=== PATIENT | female | born 1970 | race Two or more races ===

== ENCOUNTER → 2019-09-11 | Outpatient (CLI) | payer OTHER | END | disposition home or self-care (01) | LOC: CFH 06:45 | PROVIDERS: ATTEND Internal Medicine Cardiovascular Disease | DX: I08.2 Rheumatic disorders of both aortic and tricuspid valves (principal); I10 Essential (primary) hypertension; Z79.51 Long term (current) use of inhaled steroids; Z79.899 Other long term (current) drug therapy | CPT/HCPCS: 93306 ==

== ENCOUNTER 2019-11-21 05:08 | Emergency (ER) | payer OTHER ==
[~2019-11-21] VITALS: Ht 154.9 cm; Wt 65.5 kg
[2019-11-21] MEDS ORDERED: LABETALOL 5MG/ML, 20ML IVPush STA (05:37)
[2019-11-21] MEDS ORDERED: LABETALOL 5MG/ML, 20ML ONE (05:54)
[2019-11-21] MEDS ORDERED: HYDROmorphone 1 MG/ML, 1ML INJ ONE (05:55)
[2019-11-21] MEDS ORDERED: ONDANSETRON 2MG/ML, 2ML ONE ×2 (05:55→06:07)
[2019-11-21] MEDS ORDERED: HYDROmorphone 1 MG/ML, 1ML INJ IVPush ONE (06:00)
[2019-11-21] MEDS ORDERED: MORPHINE SULFATE 4 MG/ML, 1ML IVPush ONE (06:00)
[2019-11-21] MEDS ORDERED: ONDANSETRON 2MG/ML, 2ML IVPush ONE (06:00)
[2019-11-21] MEDS ORDERED: MORPHINE SULFATE 4 MG/ML, 1ML ONE (06:07)
[2019-11-21] MEDS ORDERED: ENALAPRILAT 1.25 MG/ML, 2ML IV ONE (06:30)
[2019-11-21 06:51] LABS: RAPID INFLUENZA A Negative (Negative); RAPID INFLUENZA B Negative (Negative)
--- NOTE | 2019-11-21 06:56 | NUR ---
Bedside report received from Laurita ZURITA, patient care assumed by Bessie at this time. Pt resting in gurney, respirations even and unlabored, NAD, denies additional needs at this time.
[2019-11-21] MEDS ORDERED: LABETALOL 5MG/ML, 20ML IVPush ONE (07:00)
[2019-11-21] MEDS ORDERED: MORPHINE SULFATE 4 MG/ML, 1ML IV ONE (07:00)
--- NOTE | 2019-11-21 07:57 | NUR ---
pt resting in gurney, even and unlabored respirations, NAD, Denies additional needs at this time. Call light within reach. WCTM.
[2019-11-21 08:48] VITALS: BP 139/76
== END 2019-11-21 09:03 | disposition home or self-care (01) ==
LOC: ED 08:57
DX: I10 Essential (primary) hypertension (principal); R51 Headache
CPT/HCPCS: 70450; 87081; 87400; 87880; 93005; 96374; 96375; 99285; J2270; J2405

== ENCOUNTER 2019-12-16 12:58 | Emergency (ER) | payer OTHER ==
[~2019-12-16] VITALS: Ht 154.9 cm; Wt 65.0 kg
--- NOTE | 2019-12-16 13:31 | NUR ---
Pt arrives to ed with c/o headach. diagnosed with HTN in october. Pt reportss he has missed a few doses of her blood pressure medicines. Pt reports her headach is very severe and not tolerable. pt has elevated bp now. md to bedside for eval. Pts assesment shows no neuro deficets.
[2019-12-16] MEDS ORDERED: KETOROLAC 30 MG/1 ML ONE (13:38)
[2019-12-16] MEDS ORDERED: METOCLOPRAMIDE 5 MG/ML, 2ML ONE (13:38)
[2019-12-16] MEDS ORDERED: DIPHENHYDRAMINE 50 MG/ML, 1ML ONE (13:38)
[2019-12-16] MEDS ORDERED: DIPHENHYDRAMINE 50 MG/ML, 1ML IVPush ONE (14:00)
[2019-12-16] MEDS ORDERED: SODIUM CHLORIDE FLUSH 10ML SYR IVF ONE (14:00)
[2019-12-16] MEDS ORDERED: METOCLOPRAMIDE 5 MG/ML, 2ML IVPush ONE (14:00)
[2019-12-16] MEDS ORDERED: KETOROLAC 30 MG/1 ML IVPush ONE (14:00)
[2019-12-16] MEDS ORDERED: SODIUM CHLORIDE 0.9% 1,000ML IVBOLUS ONE (14:00)
--- NOTE | 2019-12-16 14:15 | NUR ---
Pt refused rn to start iv on right arm intially, pt refused. RN started iv on perfered site despite rn informing her was not an optimal choice. upon rn establishing access she wanted it removed so it was. She told this rn he did not know what he was doing. Pt then asked if okay to attempt on right ac , right ac access was established with no difficulty. pt was very short with RN and in lithuanian was using deragotory terms to talk about rn. S.O has been very informative and helpful with rn.
[2019-12-16 14:20] LABS: BASOPHILS # (AUTO) 0.03 x10^3/uL (0-0.1); BASOPHILS % (AUTO) 0 % (0-1); EOSINOPHILS # (AUTO) 0.03 x10^3/uL (0-0.4); EOSINOPHILS % (AUTO) 0 % (1-7); LYMPHOCYTES # (AUTO) 0.98 x10^3/uL (1-3.4); LYMPHOCYTES % (AUTO) 12 % (22-44); MD NO; MEAN CORPUSCULAR HEMOGLOBIN 29.3 pg (27.0-34.8); MEAN CORPUSCULAR HGB CONC 33.4 g/dL (32.4-35.8); MEAN CORPUSCULAR VOLUME 87.8 fL (80-100); MEAN PLATELET VOLUME 8.9 fL (7.4-10.4); MONOCYTES # (AUTO) 0.17 x10^3/uL (0.2-0.8); MONOCYTES % (AUTO) 2 % (2-9); NEUTROPHILS # (AUTO) 7.33 x10^3/uL (1.8-6.8); NEUTROPHILS % (AUTO) 86 % (42-75); PLATELET COUNT 260 x10^3/uL (130-400); RED CELL DISTRIBUTION WIDTH 13.5 % (9.6-15.2)
[2019-12-16 14:27] LABS: ALBUMIN 3.7 g/dL (3.4-5.0); ANION GAP 9 mmol/L (5-15); CALCIUM 8.6 mg/dL (8.5-10.1); CHLORIDE 107 mmol/L (98-107); CREATININE 0.78 mg/dL (0.55-1.02)
[2019-12-16 15:19] VITALS: BP 138/68
== END 2019-12-16 15:22 | disposition home or self-care (01) ==
LOC: ED 13:37
DX: R51 Headache (principal); I10 Essential (primary) hypertension; R94.31 Abnormal electrocardiogram [ECG] [EKG]
CPT/HCPCS: 36415; 80048; 82040; 85025; 93005; 96374; 96375; 99284; J1200; J1885; J2765; J7030

== ENCOUNTER 2020-05-16 21:01 | Emergency (ER) | payer OTHER ==
[~2020-05-16] VITALS: Ht 154.9 cm; Wt 68.7 kg
[2020-05-16] MEDS ORDERED: SODIUM CHLORIDE FLUSH 10ML SYR IVF ONE (22:00)
[2020-05-16] MEDS ORDERED: ONDANSETRON 2MG/ML, 2ML IVPush ONE (22:00)
[2020-05-16] MEDS ORDERED: MORPHINE SULFATE 4 MG/ML, 1ML IVPush PRN (22:00)
[2020-05-16] MEDS ORDERED: MORPHINE SULFATE 4 MG/ML, 1ML ONE (22:09)
[2020-05-16] MEDS ORDERED: ONDANSETRON 2MG/ML, 2ML ONE (22:10)
[2020-05-16 22:17] LABS: BASOPHILS # (AUTO) 0.04 x10^3/uL (0-0.1); BASOPHILS % (AUTO) 1 % (0-1); EOSINOPHILS # (AUTO) 0.09 x10^3/uL (0-0.4); EOSINOPHILS % (AUTO) 1 % (1-7); LYMPHOCYTES # (AUTO) 1.79 x10^3/uL (1-3.4); LYMPHOCYTES % (AUTO) 24 % (22-44); MD NO; MEAN CORPUSCULAR HEMOGLOBIN 29.8 pg (27.0-34.8); MEAN CORPUSCULAR HGB CONC 33.3 g/dL (32.4-35.8); MEAN CORPUSCULAR VOLUME 89.4 fL (80-100); MONOCYTES # (AUTO) 0.33 x10^3/uL (0.2-0.8); MONOCYTES % (AUTO) 5 % (2-9); NEUTROPHILS # (AUTO) 5.14 x10^3/uL (1.8-6.8); NEUTROPHILS % (AUTO) 70 % (42-75); PLATELET COUNT 247 x10^3/uL (130-400); RED CELL DISTRIBUTION WIDTH 13.6 % (9.6-15.2)
--- NOTE | 2020-05-16 22:17 | NUR ---
PIV PLACED, LABS DRAWN AND COLLECTED BY DIRECTOR OF PRODUCT DESIGN. PT PROVIDED URINE SAMPLE. UA COLLECTED AND TAKEN BY DIRECTOR OF PRODUCT DESIGN. MEDS ADMIN PER NOV. PT CONNECTED TO MONITORING. WARM BLANKET PROVIDED.
[2020-05-16 22:28] LABS: ALBUMIN 4.1 g/dL (3.4-5.0); ANION GAP 7 mmol/L (5-15); CHLORIDE 106 mmol/L (98-107)
[2020-05-16 22:32] LABS: ALANINE AMINOTRANSFERASE 22 U/L (12-78); ALKALINE PHOSPHATASE 83 U/L (45-117); BILIRUBIN,TOTAL 0.4 mg/dL (0.2-1.0); CALCIUM 9.2 mg/dL (8.5-10.1); CREATININE 0.93 mg/dL (0.55-1.02); TOTAL PROTEIN 7.9 g/dL (6.4-8.2)
[2020-05-16 22:35] LABS: MICROSCOPIC NOT IND
--- NOTE | 2020-05-16 22:56 | NUR ---
PT AT CT
--- NOTE | 2020-05-16 23:01 | NUR ---
REPORT GIVEN TO DAYRON Webber
[2020-05-16] MEDS ORDERED: OMNIPAQUE 350 MG/ML, 100ML BOTTLE ONE (23:28)
[2020-05-17 01:09] VITALS: BP 166/78
== END 2020-05-17 01:41 | disposition home or self-care (01) ==
LOC: ED 23:08
DX: K52.9 Noninfective gastroenteritis and colitis, unspecified (principal); K59.00 Constipation, unspecified; R10.32 Left lower quadrant pain; R10.31 Right lower quadrant pain; R11.0 Nausea; I10 Essential (primary) hypertension
CPT/HCPCS: 36415; 74177; 80053; 81003; 83690; 85025; 96374; 96375; 99285; J2270; J2405; Q9967

== ENCOUNTER 2020-08-10 20:15 | Inpatient (IN) | payer OTHER ==
[~2020-08-10] VITALS: Ht 154.9 cm; Wt 80.8 kg
--- NOTE | 2020-08-10 21:13 | NUR ---
PT AMBULATED BACK TO ROOM WITH .
--- NOTE | 2020-08-10 21:17 | NUR ---
ER PA WAS IN TO SEE PT.
[2020-08-10] MEDS ORDERED: SODIUM CHLORIDE FLUSH 10ML SYR IVF ONE (21:30)
[2020-08-10] MEDS ORDERED: ONDANSETRON 2MG/ML, 2ML IVPush ONE (21:30)
[2020-08-10] MEDS ORDERED: ONDANSETRON 2MG/ML, 2ML ONE (21:56)
[2020-08-10] MEDS ORDERED: MORPHINE SULFATE 4 MG/ML, 1ML ONE (21:56)
[2020-08-10] MEDS: MORPHINE SULFATE 4 MG/ML, 1ML IVPush PRN (21:58)
[2020-08-10 22:12] LABS: BASOPHILS % (AUTO) 0 % (0-1); EOSINOPHILS % (AUTO) 0 % (1-7); LYMPHOCYTES % (AUTO) 11 % (22-44); MEAN CORPUSCULAR HEMOGLOBIN 28.8 pg (27.0-34.8); MEAN CORPUSCULAR HGB CONC 32.9 g/dL (32.4-35.8); MONOCYTES % (AUTO) 6 % (2-9); NEUTROPHILS % (AUTO) 83 % (42-75); PLATELET COUNT 243 x10^3/uL (130-400); RED CELL DISTRIBUTION WIDTH 13.7 % (9.6-15.2)
--- NOTE | 2020-08-10 22:19 | NUR ---
LAB CALLED AND STATES THAT THEY NEED TO PERFORM A REDRAW DUE TO THE SAMPLE BEING HEMOLYZED.
[2020-08-10 22:21] LABS: MD NO
[2020-08-10] MEDS ORDERED: STELARA INJ (22:26)
[2020-08-10] MEDS ORDERED: LOSA25TA25 PO (22:26)
--- NOTE | 2020-08-10 22:30 | NUR ---
PT STATES SHE FEELS BETTER AFTER PAIN MEDS. RESTING IN GURNEY, NO NEEDS AT THIS TIME.
[2020-08-10 22:51] LABS: ANION GAP 6 mmol/L (5-15); CALCIUM 9.1 mg/dL (8.5-10.1); CHLORIDE 106 mmol/L (98-107)
[2020-08-10 22:54] LABS: ALANINE AMINOTRANSFERASE 23 U/L (12-78); ALKALINE PHOSPHATASE 76 U/L (45-117); BILIRUBIN,TOTAL 0.6 mg/dL (0.2-1.0); CREATININE 0.58 mg/dL (0.55-1.02); TOTAL PROTEIN 7.6 g/dL (6.4-8.2)
--- NOTE | 2020-08-10 23:00 | NUR ---
PT TO CT VIA [facility].
[2020-08-11] MEDS ORDERED: MORPHINE SULFATE 4 MG/ML, 1ML ONE (00:07)
[2020-08-11] MEDS: MORPHINE SULFATE 4 MG/ML, 1ML IVPush PRN (00:08)
--- NOTE | 2020-08-11 00:15 | NUR ---
PT MEDICATED WITH ANOTHER DOSE OF MORPHINE FOR ABD PAIN. ERP WAS IN FOR RECHECK, PLAN TO CONSULT WITH GI. PT UNDERSTANDS POC. NO OTHER NEEDS AT THIS TIME. REPORTED TO HAYDEE ZURITA.
--- NOTE | 2020-08-11 00:29 | NUR ---
REPORT FROM PARMINDER BAKER. REPORT REFLECTS THAT UA HAD BEEN COLLECTED AND SENT. THIS WAS CONFIRMED WITH LAB WHO STATES THAT THERE WAS NO ORDER RECEIVED FOR UA. ORDER PLACED.
[2020-08-11 00:40] LABS: MICROSCOPIC AUTO
[2020-08-11] MEDS ORDERED: OMNIPAQUE 350 MG/ML, 100ML BOTTLE ONE (00:50)
--- NOTE | 2020-08-11 01:06 | NUR ---
PT RESTING IN [place]. DENIES NEED FOR PAIN/NAUSEA MEDICATIONS.
[2020-08-11] MEDS ORDERED: MORPHINE SULFATE 4 MG/ML, 1ML IVPush PRN (02:30)
[2020-08-11] MEDS ORDERED: SODIUM CHLORIDE FLUSH 10ML SYR IVF PRN (02:30)
[2020-08-11] MEDS ORDERED: ONDANSETRON 2MG/ML, 2ML IVPush PRN ×2 (02:30→04:00)
--- NOTE | 2020-08-11 03:13 | NUR ---
REPORT TO MALCOLM ZURITA, PT READY FOR TRANSFER TO ROOM 447.
[2020-08-11 03:32] VITALS: BP 117/75
[2020-08-11] MEDS ORDERED: morphine SULFATE 10 MG/ML, 1ML IVPush PRN ×2 (04:00→10:00)
[2020-08-11] MEDS ORDERED: ENALAPRILAT 1.25 MG/ML, 2ML IVPush PRN (04:00)
[2020-08-11] MEDS ORDERED: LACTATED RINGERS 1,000 ML IV SCH (04:00)
[2020-08-11] MEDS ORDERED: ACETAMINOPHEN 325 MG TABLET PO PRN (04:00)
[2020-08-11 08:24] VITALS: BP 118/61
[2020-08-11] MEDS ORDERED: KETOROLAC 30 MG/1 ML IM PRN (08:30)
[2020-08-11] MEDS: ACETAMINOPHEN 325 MG TABLET PO PRN (08:38)
[2020-08-11] MEDS: BISACODYL 10 MG SUPP PR SCH (09:00)
[2020-08-11 09:29] LABS: ANION GAP 6 mmol/L (5-15); CALCIUM 9.1 mg/dL (8.5-10.1); CHLORIDE 108 mmol/L (98-107); CREATININE 0.59 mg/dL (0.55-1.02)
[2020-08-11 16:16] VITALS: BP 133/85
[2020-08-11 19:26] VITALS: BP 133/73
[2020-08-12 01:55] VITALS: BP 115/61
[2020-08-12] MEDS ORDERED: LACTATED RINGERS 1,000 ML IV SCH (04:00)
[2020-08-12 05:42] LABS: ANION GAP 5 mmol/L (5-15); CALCIUM 8.6 mg/dL (8.5-10.1); CHLORIDE 108 mmol/L (98-107)
[2020-08-12 05:46] LABS: CREATININE 0.58 mg/dL (0.55-1.02)
[2020-08-12] MEDS: ACETAMINOPHEN 325 MG TABLET PO PRN (06:01)
[2020-08-12 07:30] VITALS: BP 113/71
[2020-08-12] MEDS ORDERED: POTASSIUM CHLORIDE 20 MEQ TAB.ER.PRT PO ONE (08:00)
[2020-08-12] MEDS: BISACODYL 10 MG SUPP PR SCH ×2 (09:00→09:34)
== END 2020-08-12 12:00 | disposition home or self-care (01) | DRG 386 ==
LOC: ED 21:52 → EDIP 08-11 02:46 → 4NE 08-11 03:02 → DCLOUNGE 08-12 11:50
PROVIDERS: ADMIT Family Medicine; ATTEND Internal Medicine
DX: K50.012 Crohn's disease of small intestine with intestinal obstruction (principal); K56.7 Ileus, unspecified; E66.9 Obesity, unspecified; E87.6 Hypokalemia; I10 Essential (primary) hypertension; Z90.49 Acquired absence of other specified parts of digestive tract; Z68.33 Body mass index [BMI] 33.0-33.9, adult; Z90.710 Acquired absence of both cervix and uterus; Z88.2 Allergy status to sulfonamides
CPT/HCPCS: 36415; 74018; 74177; 80048; 80053; 81001; 83631; 83993; 85025; 87086; G0378; J2405; Q9967; J2270; J7120